=== PATIENT | male | born 1985 | race Caucasian/White ===

== ENCOUNTER 2017-01-20 21:02 | Emergency (ER) | payer OTHER ==
[2017-01-20 21:36] VITALS: O2SAT 97
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
[2017-01-20 22:10] VITALS: BP 136/83; PULSE 78; RESP 20; TEMP 98.6
== END 2017-01-20 22:09 | disposition home or self-care (01) ==
DX: S16.1XXA Strain of muscle, fascia and tendon at neck level, initial encounter (principal); F17.200 Nicotine dependence, unspecified, uncomplicated; V49.49XA Driver injured in collision with other motor vehicles in traffic accident, initial encounter; Y92.410 Unspecified street and highway as the place of occurrence of the external cause; Y99.8 Other external cause status; Y93.89 Activity, other specified

== ENCOUNTER 2017-02-08 17:39 | Emergency (ER) | payer OTHER ==
[2017-02-08 17:47] VITALS: TEMP 98.2
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
[2017-02-08] MEDS ORDERED: IOPAMIDOL (ISOVUE 370) 100 ML BTL IV ONE (18:29)
[2017-02-08 19:44] VITALS: O2SAT 96
[2017-02-08] MEDS ORDERED: HYDROCOD/APAP 5/325 PREPACK#6 BTL TAKEHOME ONE ×2 (21:11→21:27)
[2017-02-08 21:27] VITALS: BP 128/70; PULSE 78; RESP 16
== END 2017-02-08 21:29 | disposition home or self-care (01) ==
DX: S16.1XXD Strain of muscle, fascia and tendon at neck level, subsequent encounter (principal); S79.912D Unspecified injury of left hip, subsequent encounter; S89.92XD Unspecified injury of left lower leg, subsequent encounter; S39.92XD Unspecified injury of lower back, subsequent encounter; F17.200 Nicotine dependence, unspecified, uncomplicated; V89.2XXD Person injured in unspecified motor-vehicle accident, traffic, subsequent encounter
CPT/HCPCS: 82947-QW; Q9967